=== PATIENT | male | born 1960 | race Caucasian/White ===

== ENCOUNTER → 2017-01-31 | Outpatient (CLI) | payer BC, OTHER ==
[2017-01-31 09:23] LABS: MEAN CORPUSCULAR HEMOGLOBIN 29.6 pg (27.0-33.0); MEAN CORPUSCULAR HGB CONC 34.2 g/dl (32.0-36.5); MEAN CORPUSCULAR VOLUME 86.8 fl (80.0-96.0); RED CELL DISTRIBUTION WIDTH 12.7 % (11.5-14.5); WHITE BLOOD COUNT 7.3 10^3/uL (4.0-10.0)
[2017-01-31 10:03] LABS: ALBUMIN 3.8 GM/DL (3.2-5.2); ALBUMIN/GLOBULIN RATIO 1.19 (1.00-1.93); ALKALINE PHOSPHATASE 81 U/L (45-117); ALT/SGPT 36 U/L (12-78); ANION GAP 7 MEQ/L (8-16); AST/SGOT 15 U/L (15-37); BILIRUBIN,TOTAL 0.7 MG/DL (0.2-1.0); BLOOD UREA NITROGEN 17 MG/DL (7-18); CALCIUM LEVEL 9.5 MG/DL (8.5-10.1); CARBON DIOXIDE LEVEL 30 MEQ/L (21-32); CHLORIDE LEVEL 106 MEQ/L (98-107); CHOLESTEROL LEVEL 174 MG/DL (<200); CREATININE FOR GFR 0.95 MG/DL (0.70-1.30); GLOMERULAR FILTRATION RATE > 60.0 (>56); GLUCOSE, FASTING 104 MG/DL (70-105); POTASSIUM SERUM 4.2 MEQ/L (3.5-5.1); SODIUM LEVEL 143 MEQ/L (136-145); THYROXINE (T4) 10.8 UG/DL (4.5-12.0); TRIGLYCERIDES LEVEL 138 MG/DL (<150)
--- NOTE | 2017-01-31 11:13 | ECGEPIP ---
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
--- NOTE | 2017-02-01 01:19 | REP ---
Clinical: Idiopathic Hypertension. Comparison: 11/06/2015 . Technique: PA and lateral. Findings: The mediastinum and cardiac silhouette are normal. The lung patel are clear and without acute consolidation, effusion, or pneumothorax. The skeletal structures are intact and normal. Impression: 1. No acute cardiopulmonary process. Signed by Deondre Evans MD 02/01/2017 01:11 A
== END ==
LOC: M LAB 08:30
PROVIDERS: ATTEND Family Medicine
DX: I10 Essential (primary) hypertension (principal)

== ENCOUNTER → 2019-06-24 | Outpatient (CLI) | payer BC, OTHER ==
[2019-06-24 09:07] LABS: HEMATOCRIT 41.9 % (42.0-52.0); MEAN CORPUSCULAR HEMOGLOBIN 29.3 pg (27.0-33.0); MEAN CORPUSCULAR HGB CONC 33.4 g/dl (32.0-36.5); MEAN CORPUSCULAR VOLUME 87.7 fl (80.0-96.0); PLATELET COUNT, AUTOMATED 264 10^3/uL (150-450); RED BLOOD COUNT 4.78 10^6/uL (4.30-6.10)
[2019-06-24 09:20] LABS: HEMOGLOBIN A1c 5.8 %
[2019-06-24 09:29] LABS: ALBUMIN 3.6 GM/DL (3.2-5.2); ALT/SGPT 42 U/L (12-78); BILIRUBIN,TOTAL 0.5 MG/DL (0.2-1.0); BLOOD UREA NITROGEN 17 MG/DL (7-18); CALCIUM LEVEL 8.4 MG/DL (8.5-10.1); CARBON DIOXIDE LEVEL 28 MEQ/L (21-32); CHLORIDE LEVEL 111 MEQ/L (98-107); CHOLESTEROL LEVEL 171 MG/DL (<200); CHOLESTEROL RISK RATIO 4.275 (<5); CREATININE FOR GFR 0.94 MG/DL (0.70-1.30); GLOMERULAR FILTRATION RATE > 60.0 (>56); GLUCOSE, FASTING 107 MG/DL (70-100); HDL CHOLESTEROL 40 MG/DL (>40); LDL CHOLESTEROL 110 MG/DL (<100); NON-HDL-C 131 MG/DL; POTASSIUM SERUM 4.1 MEQ/L (3.5-5.1); SODIUM LEVEL 144 MEQ/L (136-145); TOTAL PROTEIN 6.7 GM/DL (6.4-8.2); TRIGLYCERIDES LEVEL 106 MG/DL (<150)
[2019-06-24 09:32] LABS: TESTOSTERONE 404 NG/DL (241-827)
--- NOTE | 2019-06-24 09:42 | REP ---
Chest x-ray: Two views. History: Hypertension. Fatigue. Comparison chest x-ray: January 31, 2017. Findings: The lungs are symmetrically aerated and free of infiltrate. Pleural angles are sharp. Heart size is borderline. Cardiothoracic ratio measures 50.6%. The aorta somewhat tortuous. Pulmonary vasculature is not increased. There are mild degenerative changes in the thoracic spine. Impression: Borderline heart size. Otherwise no acute disease. Electronically Signed by Alirio Berry MD 06/24/2019 09:34 A
--- NOTE | 2019-06-24 21:32 | ECGEPIP ---
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
== END ==
LOC: M LAB 08:05
PROVIDERS: ATTEND Family Medicine
DX: I10 Essential (primary) hypertension (principal); E11.9 Type 2 diabetes mellitus without complications; R53.83 Other fatigue; M51.34 Other intervertebral disc degeneration, thoracic region

== ENCOUNTER → 2020-05-08 | Outpatient (CLI) | payer SELFPAY | LOC: M LABSMTC 11:51 | PROVIDERS: ATTEND Pediatrics | DX: Z20.822 Contact with and (suspected) exposure to COVID-19 (principal) ==

== ENCOUNTER → 2020-07-15 | Outpatient (CLI) | payer BC, OTHER ==
[~2020-07-15] MED LIST: ATEN50TA2; CLOP75TA2; OMEP-218
== END ==
LOC: M LABSMTC 09:46
PROVIDERS: ATTEND Anesthesiology
DX: Z01.812 Encounter for preprocedural laboratory examination (principal); Z20.822 Contact with and (suspected) exposure to COVID-19

== ENCOUNTER 2020-07-20 10:38 | Day surgery (SDC) | payer BC, OTHER ==
[~2020-07-20] VITALS: Ht 185.4 cm; Wt 100.2 kg
[~2020-07-20 10:38] MED LIST changes: +NS 1,000 ML IV ONE
[2020-07-20] MEDS ORDERED: ECOT81TA5 PO (11:13)
[2020-07-20] MEDS ORDERED: MAGN1CAP PO (11:30)
[2020-07-20] MEDS ORDERED: NIACCAP PO (11:30)
[2020-07-20] MEDS ORDERED: VITATAB74 PO (11:30)
[2020-07-20] MEDS ORDERED: LIDOCAINE 2% 100MG/5ML SDV (FOR ANES.) As Ordered ONE (11:38)
[2020-07-20] MEDS ORDERED: propofoL 200 MG/20 ML VIAL As Ordered ONE ×2 (11:38→12:21)
--- NOTE | 2020-07-20 12:08 | ROOR ---
Patient Name: Stephen Bolaños Procedure Date: 07/20/2020 11:49 AM Date of : 1960 Age: 59 Room: [facility] Gender: Male Note Status: Finalized Procedure: Upper Endoscopy + Biopsies Indications: Heartburn, Exclusion of Gustafson's esophagus Providers: Niraj Benitez MD Referring MD: Jalyn Whelan DO Requesting Provider: Medicines: Monitored Anesthesia Care Complications: No immediate complications. Procedure: Pre-Anesthesia Assessment: - The heart rate, respiratory rate, oxygen saturations, blood pressure, adequacy of pulmonary ventilation, and response to care were monitored throughout the procedure. The Endoscope was introduced through the mouth, and advanced to the second part of duodenum. The upper GI endoscopy was accomplished without difficulty. The patient tolerated the procedure well. Findings: The Z-line was irregular and was found 35 cm from the incisors. Multiple biopsies were obtained with cold forceps for evaluation to rule out Gustafson's Esophagus randomly at the gastroesophageal junction. A medium-sized hiatal hernia was present. Localized moderate inflammation characterized by congestion (edema) and erosions was found in the gastric antrum. Biopsies were taken with a cold forceps for Helicobacter pylori testing. The exam of the duodenum was otherwise normal. The exam was otherwise without abnormality. Impression: - Z-line irregular, 35 cm from the incisors. - Medium-sized hiatal hernia. - Mucosal changes suspicious for gastritis. Biopsied. - The examination was otherwise normal. - Multiple biopsies were obtained at the gastroesophageal junction. - The examination was otherwise normal. Recommendation: - Patient has a contact number available for emergencies. The signs and symptoms of potential delayed complications were discussed with the patient. Return to normal activities tomorrow. Written discharge instructions were provided to the patient. - Resume previous diet. - Discharge patient to home. - Follow an antireflux regimen. - Continue present medications. - Await pathology results. - Telephone GI clinic for pathology results in 1 week. - Return to referring physician. - The findings and recommendations were discussed with the patient. Procedure Code(s): --- Professional --- 55618, Esophagogastroduodenoscopy, flexible, transoral; with biopsy, single or multiple Diagnosis Code(s): --- Professional --- K22.8, Other specified diseases of esophagus K44.9, Diaphragmatic hernia without obstruction or gangrene K31.89, Other diseases of stomach and duodenum R12, Heartburn CPT copyright 2019 [employer]. All rights reserved. The codes documented in this report are preliminary and upon film waxer review may be revised to meet current compliance requirements. Niraj Benitez MD Niraj Benitez MD 07/20/2020 12:07:49 PM Electronically signed by Niraj Benitez MD Number of Addenda: 0 Note Initiated On: 07/20/2020 11:49 AM Estimated Blood Loss: Estimated blood loss: none.
--- NOTE | 2020-07-20 12:21 | ROOR ---
Patient Name: Stephen Bolaños Procedure Date: 07/20/2020 11:49 AM Date of : 1960 Age: 59 Room: [facility] Gender: Male Note Status: Finalized Procedure: Total Colonoscopy to Cecum Indications: Screening for colorectal malignant neoplasm Providers: Niraj Benitez MD Referring MD: Jalyn Whelan DO Requesting Provider: Medicines: Monitored Anesthesia Care Complications: No immediate complications. Procedure: Pre-Anesthesia Assessment: - The heart rate, respiratory rate, oxygen saturations, blood pressure, adequacy of pulmonary ventilation, and response to care were monitored throughout the procedure. The Colonoscope was introduced through the anus and advanced to the cecum, identified by appendiceal orifice and ileocecal valve. The colonoscopy was performed without difficulty. The patient tolerated the procedure well. The quality of the bowel preparation was excellent. Findings: The perianal and digital rectal examinations were normal. Non-bleeding internal hemorrhoids were found during retroflexion. The hemorrhoids were small and Grade I (internal hemorrhoids that do not prolapse). No other significant abnormalities were identified in a careful examination of the remainder of the colon. The exam was otherwise without abnormality on direct and retroflexion views. Impression: - Non-bleeding internal hemorrhoids. - The examination was otherwise normal on direct and retroflexion views. - No specimens collected. - The exam was otherwise normal to the cecum. Recommendation: - Patient has a contact number available for emergencies. The signs and symptoms of potential delayed complications were discussed with the patient. Return to normal activities tomorrow. Written discharge instructions were provided to the patient. - High fiber diet. - Discharge patient to home. - Continue present medications. - Repeat colonoscopy in 10 years for screening purposes. - Return to referring physician. - The findings and recommendations were discussed with the patient. Procedure Code(s): --- Professional --- 47459, Colonoscopy, flexible; diagnostic, including collection of specimen(s) by brushing or washing, when performed (separate procedure) Diagnosis Code(s): --- Professional --- Z12.11, Encounter for screening for malignant neoplasm of colon K64.0, First degree hemorrhoids CPT copyright 2019 [employer]. All rights reserved. The codes documented in this report are preliminary and upon floor specialist review may be revised to meet current compliance requirements. Niraj Benitez MD Niraj Benitez MD 07/20/2020 12:21:06 PM Electronically signed by Niraj Benitez MD Number of Addenda: 0 Note Initiated On: 07/20/2020 11:49 AM Estimated Blood Loss: Estimated blood loss: none.
[2020-07-20 12:50] VITALS: BP 138/90
== END 2020-07-20 12:55 | disposition home or self-care (01) ==
LOC: M OPP 10:38
PROVIDERS: ATTEND Internal Medicine Gastroenterology
DX: Z12.11 Encounter for screening for malignant neoplasm of colon (principal); K64.0 First degree hemorrhoids; K22.8 Other specified diseases of esophagus; K44.9 Diaphragmatic hernia without obstruction or gangrene; K31.89 Other diseases of stomach and duodenum; R12 Heartburn; Z79.82 Long term (current) use of aspirin; Z79.899 Other long term (current) drug therapy; Z87.891 Personal history of nicotine dependence; Z86.73 Personal history of transient ischemic attack (TIA), and cerebral infarction without residual deficits

== ENCOUNTER 2024-09-17 09:40 | Observation (INO) | payer BC, OTHER ==
[~2024-09-17] VITALS: Ht 185.4 cm; Wt 96.5 kg
[~2024-09-17 09:40] MED LIST changes: -ATEN50TA2; +ATEN50TA2 PO; -CLOP75TA2; +CLOP75TA2 PO; +ECOT81TA5 PO; +MAGN1CAP PO; +NIACCAP PO; -NS 1,000 ML IV ONE; +OMEP-173 PO; -OMEP-218; +VITATAB74 PO
[2024-09-17] MEDS ORDERED: ISOVUE-370 76% 100 ML VIAL As Ordered ONE (11:01)
[2024-09-17 11:27] LABS: VENOUS PH 7.336 UNITS (7.330-7.430)
[2024-09-17 11:28] LABS: VENOUS BASE EXCESS 1.6 (-2.0-2.0); VENOUS HCO3 28.8 MMOL/L (23.0-27.0); VENOUS O2 SATURATION 56.3 % (60.0-80.0); VENOUS PARTIAL PRESSURE CO2 55.1 mmHg (38.0-50.0); VENOUS PARTIAL PRESSURE O2 28.8 mmHg (30.0-50.0); VENOUS STANDARD HCO3 24.8 MMOL/L; VENOUS TOTAL CO2 30.5 MMOL/L (24.0-28.0)
[2024-09-17 11:34] LABS: BASO # 0.1 10^3/uL (0.0-0.2); BASO % 0.5 % (0.0-1.0); EOS # 0.2 10^3/uL (0.0-0.5); EOS % 1.7 % (0.0-3.0); HEMOGLOBIN 14.8 g/dl (13.5-17.5); LYMPH # 1.9 10^3/uL (1.5-5.0); LYMPH % 17.6 % (24.0-44.0); MEAN CORPUSCULAR HEMOGLOBIN 29.4 pg (27.0-33.0); MEAN CORPUSCULAR HGB CONC 33.6 g/dl (32.0-36.5); MEAN CORPUSCULAR VOLUME 87.5 fl (80.0-96.0); MONO # 0.7 10^3/uL (0.0-0.8); MONO % 6.8 % (2.0-8.0); NEUTROPHILS # 7.9 10^3/uL (1.5-8.5); NEUTROPHILS % 72.9 % (36.0-66.0); PLATELET COUNT, AUTOMATED 275 10^3/uL (150-450); RED BLOOD COUNT 5.03 10^6/uL (4.30-6.10); WHITE BLOOD COUNT 10.8 10^3/uL (4.0-10.0)
[2024-09-17 12:09] LABS: INR 0.95; PARTIAL THROMBOPLASTIN TIME 27.4 SECONDS (24.8-34.2)
[2024-09-17 12:09] LABS: ETHYL ALCOHOL (ETHANOL) < 0.003 % (0.000-0.010)
[2024-09-17 12:11] LABS: ALKALINE PHOSPHATASE 76 U/L (40-129); ALT/SGPT 28 U/L (7.0-40); AST/SGOT 19 U/L (<34); BILIRUBIN,DIRECT 0.2 MG/DL (<0.4); BILIRUBIN,TOTAL 0.5 MG/DL (0.3-1.2); BLOOD UREA NITROGEN 18 MG/DL (9-23); CALCIUM LEVEL 9.5 MG/DL (8.3-10.6); CARBON DIOXIDE LEVEL 28 MMOL/L (20-31); CHLORIDE LEVEL 106 MMOL/L (98-107); CREATININE FOR GFR 0.84 MG/DL (0.70-1.30); GLOMERULAR FILTRATION RATE > 90.0 (>49); GLUCOSE, FASTING 107 MG/DL (74-106); POTASSIUM SERUM 4.8 MMOL/L (3.5-5.1); SALICYLATE LEVEL < 3.0 MG/DL (<30); SODIUM LEVEL 143 MMOL/L (136-145); TOTAL PROTEIN 7.2 G/DL (5.7-8.2)
[2024-09-17 12:13] LABS: THYROID STIMULATING HORMONE 1.675 uIU/ML (0.55-4.78)
[2024-09-17] MEDS ORDERED: OMEG10002 PO (12:20)
[2024-09-17] MEDS ORDERED: ATEN50TA2 PO (12:20)
[2024-09-17] MEDS ORDERED: D 10CHW PO (12:20)
[2024-09-17] MEDS ORDERED: VITAD1000T PO (12:20)
[2024-09-17] MEDS ORDERED: MAGN500T12 PO (12:20)
[2024-09-17 12:25] LABS: OSMOLALITY SERUM 304 MOSM/KG (280-301)
[2024-09-17] MEDS ORDERED: HOME MED LIST COMPLETE! XX SCH (12:25)
[2024-09-17] MEDS ORDERED: hydrALAZINE 20 MG/ML 1 ML VIAL IV PRN (13:40)
[2024-09-17 14:12] LABS: CHOLESTEROL LEVEL 185 MG/DL (<200); CHOLESTEROL RISK RATIO 4.12 (<5); HDL CHOLESTEROL 44.8 MG/DL (>40); LDL CHOLESTEROL 121.2 MG/DL (<100); NON-HDL-C 140.2 MG/DL; TRIGLYCERIDES LEVEL 95 MG/DL (<150)
[2024-09-17 15:07] LABS: KETONE, URINE AUTO RFX NEGATIVE (NEGATIVE); LEUKOCYTE ESTERASE UR AUTO RFX NEGATIVE (NEGATIVE); NITRITE, URINE AUTO RFX NEGATIVE (NEGATIVE); RBC, URINE AUTO RFX 1 /HPF (0-3); SQUAM EPITHELIAL CELL UR AURFX 0 /HPF (0-6); WBC, URINE AUTO RFX 1 /HPF (0-3)
[2024-09-17 15:08] LABS: HEMOGLOBIN A1c 5.3 % (4.0-6.0)
[2024-09-17 15:29] LABS: AMPHETAMINES LEVEL URINE NEGATIVE (NEGATIVE); BARBITURATES URINE NEGATIVE (NEGATIVE); BENZODIAZEPINES URINE NEGATIVE (NEGATIVE); CANNABINOIDS URINE NEGATIVE (NEGATIVE); COCAINE METABOLITE URINE NEGATIVE (NEGATIVE); METHADONE URINE NEGATIVE (NEGATIVE); OPIATES URINE NEGATIVE (NEGATIVE); PHENCYCLIDINE URINE NEGATIVE (NEGATIVE)
[2024-09-17] MEDS: atenoloL 25 MG TAB PO SCH (20:34)
[2024-09-17] MEDS: ATORVASTATIN 20 MG TAB PO SCH (20:35)
[2024-09-17] MEDS: OMEPRAZOLE 20MG CAP PO SCH (20:53)
[2024-09-18 06:03] LABS: BASO # 0.1 10^3/uL (0.0-0.2); BASO % 0.6 % (0.0-1.0); EOS # 0.3 10^3/uL (0.0-0.5); EOS % 3.8 % (0.0-3.0); HEMATOCRIT 42.3 % (42.0-52.0); HEMOGLOBIN 14.2 g/dl (13.5-17.5); LYMPH # 2.4 10^3/uL (1.5-5.0); LYMPH % 28.1 % (24.0-44.0); MEAN CORPUSCULAR HGB CONC 33.6 g/dl (32.0-36.5); MEAN CORPUSCULAR VOLUME 86.3 fl (80.0-96.0); MONO # 0.9 10^3/uL (0.0-0.8); MONO % 10.2 % (2.0-8.0); NEUTROPHILS # 4.8 10^3/uL (1.5-8.5); NEUTROPHILS % 56.9 % (36.0-66.0); PLATELET COUNT, AUTOMATED 269 10^3/uL (150-450); WHITE BLOOD COUNT 8.5 10^3/uL (4.0-10.0)
[2024-09-18 06:35] LABS: BLOOD UREA NITROGEN 21 MG/DL (9-23); CALCIUM LEVEL 9.3 MG/DL (8.3-10.6); CARBON DIOXIDE LEVEL 31 MMOL/L (20-31); CHLORIDE LEVEL 106 MMOL/L (98-107); CREATININE FOR GFR 0.93 MG/DL (0.70-1.30); GLOMERULAR FILTRATION RATE > 90.0 (>49); GLUCOSE, FASTING 105 MG/DL (74-106); MAGNESIUM LEVEL 2.1 MG/DL (1.8-2.4); POTASSIUM SERUM 4.3 MMOL/L (3.5-5.1); SODIUM LEVEL 145 MMOL/L (136-145)
[2024-09-18] MEDS: ASPIRIN 81 MG ENTERIC TABLET PO SCH (08:01)
[2024-09-18] MEDS: ENOXAPARIN 40 MG/0.4 ML SYRINGE (J1650 PER 10MG) SC SCH (08:01)
[2024-09-18] MEDS: CLOPIDOGREL 75 MG TAB PO SCH (08:01)
[2024-09-18] MEDS: MAGNESIUM OXIDE 400 MG TAB PO SCH (08:02)
[2024-09-18] MEDS: VITAMIN D 1,000 INTERNATIONAL UNITS TABLET PO SCH (08:02)
[2024-09-18] MEDS: atenoloL 50 MG TAB PO SCH (08:04)
[2024-09-18] MEDS: amLODIPine 5 MG TAB PO ONE ×2 (08:06→11:36)
[2024-09-18] MEDS: OMEGA-3 1000 MG CAPSULE PO SCH (08:10)
[2024-09-18] MEDS ORDERED: ATOR80TA59 PO (10:30)
[2024-09-18] MEDS ORDERED: AMLO1TAB24 PO (10:30)
[2024-09-18] MEDS ORDERED: AMLO1TAB25 PO (11:07)
[2024-09-18 11:36] VITALS: BP 147/97
[2024-09-18] MEDS: hydrALAZINE 20 MG/ML 1 ML VIAL IV ONE (11:36)
[2024-09-18 12:39] VITALS: BP 152/80; TEMP 98.3; O2SAT 100
[2024-09-20 19:27] LABS: LYME TOTAL ANTIBODY CIA <= 0.90 Index (<=0.90)
[2024-09-23 09:42] LABS: Anaplasma phagocytophilum NOT DETECTED (NOT DETECT); BORRELIA SPECIES DNA NOT DETECTED (NOT DETECT); Babesia microti NOT DETECTED (NOT DETECT); Ehrlichia chaffeensis NOT DETECTED (NOT DETECT)
== END 2024-09-18 12:57 | disposition home or self-care (01) ==
LOC: M ED 09:40 → M ED INP 09:41
PROVIDERS: ADMIT Internal Medicine; ATTEND Internal Medicine
DX: R41.3 Other amnesia (principal); I10 Essential (primary) hypertension; I16.0 Hypertensive urgency; Z86.73 Personal history of transient ischemic attack (TIA), and cerebral infarction without residual deficits; R00.1 Bradycardia, unspecified; E78.5 Hyperlipidemia, unspecified; E55.9 Vitamin D deficiency, unspecified; K21.9 Gastro-esophageal reflux disease without esophagitis; Z79.82 Long term (current) use of aspirin; Z79.899 Other long term (current) drug therapy
CPT/HCPCS: 36415; 70450; 70496; 70498; 70544; 70551; 71045; 80047; 80048; 80061; 80076; 80143; 80307; 81001; 82077; 82140; 82803; 83036; 83605; 83735; 83930; 84443; 85025; 85610; 85730; 86618; 87468; 87469; 87478; 87484; 87486; 87581; 87633; 87798; 87801; 93005; 93041; 93306; 94760; 95819; 96372; 96374; 97165; 99285; G0378; J0360; J1650; Q9967